=== PATIENT | female | born 2000 | race Caucasian/White ===

== ENCOUNTER 2019-06-05 21:15 | Emergency (ER) | payer BC ==
[2019-06-05] MEDS ORDERED: Magnesium 2 GM/50 ML BAG (IN WATER) ONE (23:11)
[2019-06-05] MEDS ORDERED: Metoclopramide HCl 10 MG/2 ML VIAL ONE (23:11)
[2019-06-05] MEDS ORDERED: diphenhydrAMINE 50 MG/ML VIAL ONE (23:11)
== END 2019-06-06 01:41 | disposition home or self-care (01) ==
LOC: ERS 21:15
DX: R51 Headache (principal); Z79.899 Other long term (current) drug therapy
CPT/HCPCS: 96365; 96368; 96375; J1200; J2765; J3475